=== PATIENT | male | born 1975 | race Caucasian/White ===

== ENCOUNTER → 2018-07-14 | Outpatient (CLI) | payer OTHER ==
[~2018-07-14] MED LIST: CPR500 PO; DTR/5 PO; ONDA4TAB10 SL; OXYC-90 PO; PHEN-775 PO; POTATAB13 PO; SULI200T PO
== END | disposition home or self-care (01) ==
LOC: C.LABBFT 09:35
PROVIDERS: ATTEND Physician Assistant Medical
DX: Z13.6 Encounter for screening for cardiovascular disorders (principal)